=== PATIENT | female | born 1990 ===

== ENCOUNTER 2022-07-05 09:56 | Outpatient (CLI) | payer OTHER, SELFPAY ==
--- NOTE | ~2022-07-05 | US_ITS ---
EXAMINATION: US breast RT limited HISTORY: One-month history of painful right mass in the upper inner quadrant of the right breast TECHNIQUE: Limited right breast ultrasound is performed. FINDINGS: There is a 2.4 x 1.4 cm oval, circumscribed, parallel, anechoic mass with areas of peripher al wall thickening at the 1:00 location 11 cm from the nipple corresponding to the palpable abnormali ty of concern. There is posterior acoustic enhancement and mild peripheral vascularity. IMPRESSION: Probable inflamed cyst of the right breast corresponding to the palpable abnormality of concern. Hardy mmend continued clinical follow-up and targeted left breast ultrasound in six months. If symptoms wor sen, could consider ultrasound-guided aspiration/biopsy. BI-RADS category 3, probably benign findings. Reviewed, dictated and finalized at location A. [employer] ASSESSOR IMPRESSION: Probable inflamed cyst of the right breast corresponding to the palpable abnorm ality of concern. Recommend continued clinical follow-up and targeted left timmy st ultrasound in six months. If symptoms worsen, could consider ultrasound-guid ed aspiration/biopsy. BI-RADS category 3, probably benign findings.
== END 2022-07-05 09:57 ==
PROVIDERS: PCP Hospitalist; Visit Provider Hospitalist
DX: N63.12 Unspecified lump in the right breast, upper inner quadrant (principal); R92.8 Other abnormal and inconclusive findings on diagnostic imaging of breast
CPT/HCPCS: 76642